=== PATIENT | male | born 1930 | race Caucasian/White ===

== ENCOUNTER 2017-11-28 11:13 | Emergency (ER) | payer MEDICARE ==
--- NOTE | 2017-11-28 12:02 | ERPHSYRPT ---
- History of Present Illness Time Seen by Provider: 11/28/17 11:51 Source: patient Exam Limitations: no limitations Patient Subjective Stated Complaint: tripped this am on the carpet and fell striking left temporal area. pain to area. also having pain to left lateral knee. Triage Nursing Assessment: to room per w/c. skin w/d, color normal, resp easy. abrasion noted to left temporal area. no injury noted to left knee. tenderness to upper posterior neck. denies any numbness, tingling. Physician History: The patient is an 87-year-old male with family complaining that he tripped over a carpet about 2 hours ago, striking his left jewish area of his head on the floor. He has pain on the left side of his head as well as neck pain. He also struck his left knee. He did not lose consciousness. He does take a blood thinner, Coumadin. His past medical history is significant for diabetes, hypertension, high cholesterol, prostate cancer, and Parkinson's. Occurred: just prior to arrival Reason for Fall: tripped, fell from standing pos Injuries/Pain Location: head, neck, lower extremity (left knee) Loss of Consciousness: no loss of consciousness Quality: aching Severity of Pain-Max: mild Severity of Pain-Current: mild Modifying Factors: Improves With: nothing Associated Symptoms (Fall): extremity injury, headache, neck pain, No nausea, No slurred speech, No vomiting Allergies/Adverse Reactions: No Known Drug Allergies Allergy (Verified 11/28/17 11:32) Home Medications: Alprazolam [Xanax 0.25 mg] 0.25 mg PO BID PRN 09/30/13 [History] Benazepril HCl 10 mg [Lotensin 10 MG] 10 mg PO DAILY 09/30/13 [History] Carbidopa/Levodopa [Sinemet 10-100 mg Tablet] 1 each PO TID 09/30/13 [History] Finasteride 5 mg [Proscar 5 MG] 5 mg PO DAILY 09/30/13 [History] Glipizide 10 mg [Glucotrol 10 MG] 10 mg PO BID 09/30/13 [History] Metoprolol Succinate 25 mg Xl* [Toprol-Xl 25MG Tablets] 25 mg PO BID [History] Oxybutynin Chloride [Oxybutynin Chloride ER] 5 mg PO DAILY 09/30/13 [History] Simvastatin [Zocor] 20 mg PO QHS 09/30/13 [History] Terazosin HCl 5 mg [Hytrin 5Mg] 5 mg PO DAILY 09/30/13 [History] Warfarin Sodium 2 mg [Coumadin 2 MG] 3 mg PO QHS 09/30/13 [History] Bimatoprost 0.01% [Lumigan 0.01% 2.5 ml] 2.5 ml OP HS 11/28/17 [History] Diltiazem HCl 120 mg [Cardizem CD 120 MG] 120 mg PO DAILY 11/28/17 [ History] Donepezil HCl [Aricept] 5 mg PO DAILY 11/28/17 [History] Dorzolamide HCl [Trusopt] 10 ml OP HS 11/28/17 [History] Quetiapine Fumarate 25 mg [Seroquel 25 MG] 25 mg PO DAILY 11/28/17 [ History] Hx Tetanus, Diphtheria Vaccination/Date Given: Yes Hx Influenza Vaccination/Date Given: Yes Hx Pneumococcal Vaccination/Date Given: Yes - Review of Systems Constitutional: No Fever, No Chills Eyes: No Symptoms Ears, Nose, & Throat: No Symptoms Respiratory: No Cough, No Dyspnea Cardiac: No Chest Pain, No Edema, No Syncope Abdominal/Gastrointestinal: No Abdominal Pain, No Nausea, No Vomiting, No Diarrhea Genitourinary Symptoms: No Dysuria Musculoskeletal: Neck Pain, Fall, Injury, Joint Pain Skin: No Rash Neurological: Headache Psychological: No Symptoms Endocrine: No Symptoms Hematologic/Lymphatic: No Symptoms Immunological/Allergic: No Symptoms All Other Systems: Reviewed and Negative - Past Medical History Pertinent Past Medical History: Yes Neurological History: Dementia, Other ENT History: Cataracts Cardiac History: Arrhythmia, High Cholesterol, Hypertension, Myocardial Infarction ([place]) Respiratory History: Other Endocrine Medical History: Diabetes Type II Musculoskeletal History: No Pertinent History GI Medical History: GERD History: No Pertinent History Psycho-Social History: Anxiety Male Reproductive Disorders: Prostate Problems Other Medical History: parkinson - Past Surgical History Past Surgical History: Yes Neuro Surgical History: No Pertinent History Cardiac: Pacemaker Respiratory: Other Gastrointestinal: Bowel Surgery Genitourinary: No Pertinent History Musculoskeletal: Orthopedic Surgery Male Surgical History: No Pertinent History Other Surgical History: PCM, 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 - Social History Smoking Status: Former smoker How long have you smoked: 60 years Exposure to second hand smoke: No Drug Use: none Patient Lives Alone: Yes - Nursing Vital Signs Nursing Vital Signs: Initial Vital Signs Temperature 97.4 F 11/28/17 11:26 Pulse Rate 70 11/28/17 11:26 Respiratory Rate 16 11/28/17 11:26 Blood Pressure 165/85 11/28/17 11:26 O2 Sat by Pulse Oximetry 100 11/28/17 11:26 Pain Scale Pain Intensity 0 - [place] Coma Score Best Eye Response ([place]): (4) open spontaneously Best Verbal Response ([place]): (5) oriented Best Motor Response ([place]): (6) obeys commands [place] Total: 15 - Physical Exam General Appearance: no apparent distress, alert Head Injury: contusions, tenderness (left temporal area, also abrasions) Eye Exam: PERRL/EOMI ENT Exam: airway nml Neck Exam: paraspinous muscle tender, No mid-line tenderness Respiratory/Chest Exam: normal breath sounds, No chest tenderness, No respiratory distress Cardiovascular Exam: normal heart sounds, regular rate/rhythm Gastrointestinal Exam: soft, No tenderness, No distention, No guarding, No ecchymosis Rectal Exam: not done Back Exam: normal inspection, No vertebral tenderness Extremity Exam: tenderness (mild tenderness to lateral area of left knee, no swelling. no bruising) Neurologic Exam: alert, oriented x 3, cooperative, sensation nml, No motor deficits Skin Exam: abrasion SpO2 Interpretation: normal SpO2: 100 Oxygen Delivery: Room Air - Radiology Exams Left Knee X-ray Interpretation: Reviewed by me, Teleradiologist Report, Negative (no fracture per Dr Medellin) - CT Exams Head CT Interpretation: Negative (per Dr Medellin.), Tele-radiologist Report Cervical Spine CT Interpretation: Tele-radiologist Report, No Fracture (per DR Medellin.) Ordered Tests: Active Orders 24 hr Category Date Time Status CERVICAL SPINE WO CONTRAST [CT] Stat Exams 11/28/17 12:10 Completed HEAD WITHOUT CONTRAST [CT] Stat Exams 11/28/17 12:10 Completed KNEE (1 OR 2 VIEW) Stat Exams 11/28/17 12:10 Completed UA W/ MICROSCOPIC Stat Lab 11/28/17 14:48 Results Lab/Rad Data: Laboratory Results 11/28/17 Range/Units 14:48 Ur Collection Type CLEAN CATCH Urine Color YELLOW (YELLOW) Urine Appearance CLEAR (CLEAR) Urine pH 5.0 (5-6) Ur Specific [place] 1.010 (1.005-1.025) Urine Protein 30 (Negative) Urine Ketones NEGATIVE (NEGATIVE) Urine Blood NEGATIVE (0-5) Sukumar/ul Urine Nitrite NEGATIVE (NEGATIVE) Urine Bilirubin NEGATIVE (NEGATIVE) Urine Urobilinogen NORMAL (0-1) mg/dL Ur Leukocyte Esterase NEGATIVE (NEGATIVE) Urine Microscopic RBC 0-2 (0-2) /HPF Urine Microscopic WBC 0-2 (0-5) /HPF Ur Epithelial Cells FEW (FEW) /HPF Urine Bacteria FEW (NEGATIVE) /HPF Urine Mucus SLIGHT (NEGATIVE) /HPF Urine Culture Reflexed Pending Urine Glucose NEGATIVE (NEGATIVE) mg/dL Specimen Received 11-28-17 1500 - Progress Progress: improved Counseled pt/family regarding: need for follow-up, rad results - Departure Time of Disposition: 14:45 Departure Disposition: Home Clinical Impression: Scalp contusion, Contusion of left knee, Fall Condition: Stable Critical Care Time: No Referrals: JACOB MAN [Primary Care Provider] - Additional Instructions: You fell at home causing you to hit your head and left knee. You had no loss of consciousness. Your imaging studies were negative for any fracture. Take Tylenol 1000 mg every 6-8 hours as needed for pain. Apply ice to the area as needed. Follow-up in one to 2 days.
--- NOTE | 2017-11-28 13:04 | XRAY ---
Indication: Left temporal injury/pain following fall. Multiple contiguous axial images obtained through the head without contrast. Comparison: None Age-appropriate global atrophy and minimal periventricular degenerative micro-ischemia bilaterally. No acute intracranial hemorrhage, abnormal extra-axial fluid collection, or mass effect. Fourth aunt was midline without hydrocephalus. Bony calvarium intact. Visualized paranasal sinuses and mastoid air cells are clear. Impression: Nonacute senile brain. CT DI 67.64
--- NOTE | 2017-11-28 13:08 | XRAY ---
Indication: Left temporal injury/pain following fall. Multiple contiguous axial images obtained through the cervical spine. Sagittal and coronal reformatted images obtained. Comparison: None Axial images negative for acute fracture or suspicious bony lesions. Moderate C5-T1 bridging endplate osteophytes greatest at the C7-T2 level. Also multilevel bilateral uncovertebral spurring and bilateral degenerative facet arthropathy. Additional moderate atlantoaxial degenerative changes. Sagittal and coronal reformatted images demonstrates cervical lordotic straightening, positional versus paraspinal spasm. C5-T2 disc space loss. No acute compression fracture, subluxation, or jumped facet. Normal-appearing craniocervical junction. Superior T2 Schmorl node. Visualized noncontrasted soft tissues demonstrates mild/moderate scattered carotid calcifications, left greater than right. Biapical subpleural cystic changes. CT head reported separately. Impression: 1. Cervical lordotic straightening, positional versus paraspinal spasm. 2. Negative acute fracture/subluxation. 3. Multilevel degenerative changes. CT DI 104.52
--- NOTE | 2017-11-28 13:10 | XRAY ---
Indication: Pain following fall. Comparison: None AP/lateral left knee demonstrates mild medial joint space narrowing, tiny suprapatellar spurring, posterior fabella, medial soft tissue swelling, and scattered vascular calcifications. No other bony, articular, or soft tissue abnormalities.
[2017-11-28 14:20] VITALS: BP 140/87; PULSE 70
[2017-11-28 15:13] LABS: Appearance CLEAR (CLEAR); Bilirubin NEGATIVE (NEGATIVE); Blood NEGATIVE Ery/ul (0-5); Glucose NEGATIVE (NEGATIVE); Ketones NEGATIVE (NEGATIVE); Leukocyte Esterase NEGATIVE (NEGATIVE); Nitrite NEGATIVE (NEGATIVE); Protein,Urine Dip 30 (Negative); Urobilinogen NORMAL mg/dL (0-1)
[2017-11-28 15:23] LABS: Bacteria FEW /HPF (NEGATIVE); Epithelial Cells FEW /HPF (FEW); Mucus SLIGHT /HPF (NEGATIVE); WBC 0-2 /HPF (0-5)
[2017-11-28] MEDS ORDERED: TYLENOL EXTRA STRENGTH 500 MG PO STA (15:43)
[2017-11-28] MEDS ORDERED: TYLENOL EXTRA STRENGTH 500 MG ONE (15:44)
[2017-11-28 15:45] VITALS: O2SAT 100
== END 2017-11-28 15:57 | disposition home or self-care (01) ==
LOC: ED 11:13
DX: S00.03XA Contusion of scalp, initial encounter (principal); R51 Headache; S80.02XA Contusion of left knee, initial encounter; M54.2 Cervicalgia; Z79.01 Long term (current) use of anticoagulants; Z79.899 Other long term (current) drug therapy; W01.198A Fall on same level from slipping, tripping and stumbling with subsequent striking against other object, initial encounter
CPT/HCPCS: 70450; 72125; 73560; 81000; 99284; A9270-GY